=== PATIENT | male | born 1980 | race Two or more races ===

== ENCOUNTER 2022-01-30 13:25 | Inpatient (IN) | payer OTHER ==
[2022-01-30 15:45] VITALS: BMI 21.6
[2022-01-30] MEDS ORDERED: DICYCLOMINE HCL 10 MG CAPSULE PO PRN (16:51)
[2022-01-30] MEDS ORDERED: methaDONE HCL 10 MG TABLET (FOR DETOX USE ONLY) PO ONE (16:51)
[2022-01-30] MEDS ORDERED: ONDANSETRON *ODT* 4 MG TABLET SL PRN (16:51)
[2022-01-30] MEDS ORDERED: MAG HYDROX/AL HYDROX/SIMETH 30 ML UNIT-DOSE CUP PO PRN (16:51)
[2022-01-30] MEDS ORDERED: MAGNESIUM CITRATE 300 ML BOTTLE PO PRN (16:51)
[2022-01-30] MEDS ORDERED: IBUPROFEN 400 MG TABLET (FP) PO PRN (16:51)
[2022-01-30] MEDS ORDERED: NICOTINE 10 MG CARTRIDGE (INHALER) IH PRN (16:51)
[2022-01-30] MEDS ORDERED: IBUPROFEN 600 MG TABLET (FP) PO PRN (16:51)
[2022-01-30] MEDS ORDERED: BISMUTH SUBSALICYLATE 524 MG/30 ML PO PRN (16:51)
[2022-01-30] MEDS ORDERED: LOPERAMIDE HCL 2 MG CAPSULE PO PRN (16:51)
[2022-01-30] MEDS ORDERED: ACETAMINOPHEN 325 MG TABLET (FP) PO PRN ×2 (16:51)
[2022-01-30] MEDS ORDERED: BENZOCAINE/MENTHOL (CHLORASEPTIC ) LOZENGE MM PRN (16:51)
[2022-01-30] MEDS ORDERED: MAGNESIUM HYDROX 2400MG/30ML ORAL SUSPENSION 30 ML CUP PO PRN (16:51)
[2022-01-31] MEDS: MELATONIN 5 MG TABLETS PO SCH ×2 (00:13→21:25)
[2022-01-31] MEDS: PRENATAL VITAMINS W/ FOLIC ACID TABLET (FP) PO SCH ×2 (00:14→09:58)
[2022-01-31] MEDS: THIAMINE HCL 100 MG TABLET (FP) PO SCH ×2 (00:14→21:24)
[2022-01-31] MEDS: hydrOXYzine PAMOATE 25 MG CAPSULE (FP) PO SCH ×6 (00:14→21:23)
[2022-01-31] MEDS: METHOCARBAMOL 500 MG TABLET PO PRN ×2 (09:58→23:14)
[2022-01-31] MEDS: cloNIDine HCL 0.1 MG TABLET PO PRN (11:02)
[2022-01-31] MEDS: diazePAM 5 MG TABLET PO PRN ×2 (12:24→21:24)
[2022-01-31 14:02] LABS: HEMATOCRIT 45.4 % (35.4-49); HEMOGLOBIN 15.4 GM/dL (11.7-16.9); MCH 31.3 pg (25.7-33.7); MEAN PLT VOLUME 8.6 fl (7.5-11.1); PLATELET COUNT 277 10^3/uL (134-434); RBC 4.93 M/mm3 (4.00-5.60); RDW 13.3 % (11.9-15.9); WHITE BLOOD COUNT 5.4 K/mm3 (4.0-10.0)
[2022-01-31 14:11] LABS: ALBUMIN 3.2 g/dl (3.4-5.0); CALCIUM 9.6 mg/dL (8.5-10.1)
[2022-01-31 14:12] LABS: BLOOD UREA NITROGEN 8.1 mg/dL (7-18)
[2022-01-31 14:15] LABS: CREATININE 0.7 mg/dL (0.55-1.3)
[2022-01-31 14:16] LABS: TOT PROT 7.5 g/dl (6.4-8.2)
[2022-01-31 14:17] LABS: BILIRUBIN,TOTAL 0.5 mg/dL (0.2-1)
[2022-02-01] MEDS: cloNIDine HCL 0.1 MG TABLET PO PRN (01:44)
[2022-02-01] MEDS: diazePAM 5 MG TABLET PO PRN ×4 (02:26→22:17)
[2022-02-01] MEDS: hydrOXYzine PAMOATE 25 MG CAPSULE (FP) PO SCH ×5 (06:31→22:17)
[2022-02-01] MEDS ORDERED: methaDONE HCL 10 MG TABLET (FOR DETOX USE ONLY) PO ONE (10:00)
[2022-02-01] MEDS: PRENATAL VITAMINS W/ FOLIC ACID TABLET (FP) PO SCH (10:07)
[2022-02-01 21:30] VITALS: RESP 18
[2022-02-01] MEDS: THIAMINE HCL 100 MG TABLET (FP) PO SCH (22:17)
[2022-02-01] MEDS: MELATONIN 5 MG TABLETS PO SCH (22:17)
[2022-02-02 06:20] VITALS: BP 96/63; PULSE 65; TEMP 97.1
[2022-02-02] MEDS: hydrOXYzine PAMOATE 25 MG CAPSULE (FP) PO SCH (07:05)
[2022-02-03] MEDS ORDERED: methaDONE HCL 10 MG TABLET (FOR DETOX USE ONLY) PO ONE (10:00)
== END 2022-02-02 10:35 | disposition left against medical advice (07) | DRG 770 ==
LOC: YASAS 13:25 → Y6N 20:23
PROVIDERS: ADMIT Allergy & Immunology; ATTEND Surgery
PROC: HZ2ZZZZ Detoxification Services for Substance Abuse Treatment (ICD-10-PCS; principal; 2022-01-30)
DX: F11.23 Opioid dependence with withdrawal (principal); F14.20 Cocaine dependence, uncomplicated; F17.210 Nicotine dependence, cigarettes, uncomplicated; F31.9 Bipolar disorder, unspecified; I10 Essential (primary) hypertension; E78.5 Hyperlipidemia, unspecified; J44.9 Chronic obstructive pulmonary disease, unspecified; Z88.6 Allergy status to analgesic agent; Z86.14 Personal history of Methicillin resistant Staphylococcus aureus infection; Z56.0 Unemployment, unspecified; Z59.00 Homelessness unspecified
CPT/HCPCS: 36415; 80053; 85027; 86780; C9803-CS; J0735; U0003; U0005

== ENCOUNTER 2022-04-21 10:52 | Inpatient (IN) | payer OTHER ==
[2022-04-21 11:19] VITALS: BMI 21.6
[2022-04-21] MEDS ORDERED: MAG HYDROX/AL HYDROX/SIMETH 30 ML UNIT-DOSE CUP PO PRN (13:41)
[2022-04-21] MEDS ORDERED: NALOXONE HCL (KLOXXADO) 8 MG SPRAY NS PRN (13:41)
[2022-04-21] MEDS ORDERED: LOPERAMIDE HCL 2 MG CAPSULE PO PRN (13:41)
[2022-04-21] MEDS ORDERED: NICOTINE 10 MG CARTRIDGE (INHALER) IH PRN (13:41)
[2022-04-21] MEDS ORDERED: methaDONE HCL 10 MG TABLET (FOR DETOX USE ONLY) PO ONE (13:41)
[2022-04-21] MEDS ORDERED: DICYCLOMINE HCL 10 MG CAPSULE PO PRN (13:41)
[2022-04-21] MEDS ORDERED: MAGNESIUM HYDROX 2400MG/30ML ORAL SUSPENSION 30 ML CUP PO PRN (13:41)
[2022-04-21] MEDS ORDERED: BENZOCAINE/MENTHOL (CHLORASEPTIC ) LOZENGE MM PRN (13:41)
[2022-04-21] MEDS ORDERED: MAGNESIUM CITRATE 300 ML BOTTLE PO PRN (13:41)
[2022-04-21] MEDS ORDERED: BISMUTH SUBSALICYLATE 262 MG/15 ML BTL PO PRN (13:41)
[2022-04-21] MEDS ORDERED: IBUPROFEN 400 MG TABLET (FP) PO PRN (13:41)
[2022-04-21] MEDS ORDERED: ACETAMINOPHEN 325 MG TABLET (FP) PO PRN (13:41)
[2022-04-21] MEDS ORDERED: ONDANSETRON *ODT* 4 MG TABLET ONE (15:23)
[2022-04-21] MEDS ORDERED: methaDONE HCL 10 MG TABLET (FOR DETOX USE ONLY) ONE (15:24)
[2022-04-21] MEDS: ONDANSETRON *ODT* 4 MG TABLET SL PRN (15:27)
[2022-04-21] MEDS: ACETAMINOPHEN 325 MG TABLET (FP) PO PRN (15:47)
[2022-04-21] MEDS: PRENATAL VITAMINS W/ FOLIC ACID TABLET (FP) PO SCH (15:47)
[2022-04-21] MEDS: NICOTINE 21 MG/24 HOURS TOPICAL PATCH TD SCH (15:47)
[2022-04-21] MEDS: THIAMINE HCL 100 MG TABLET (FP) PO SCH (22:01)
[2022-04-21] MEDS: METHOCARBAMOL 500 MG TABLET PO PRN (22:02)
[2022-04-21] MEDS: MELATONIN 5 MG TABLETS PO SCH (22:02)
[2022-04-21] MEDS: hydrOXYzine PAMOATE 25 MG CAPSULE (FP) PO PRN (22:02)
[2022-04-22] MEDS: hydrOXYzine PAMOATE 25 MG CAPSULE (FP) PO PRN ×2 (10:32→17:11)
[2022-04-22] MEDS: METHOCARBAMOL 500 MG TABLET PO PRN ×2 (10:32→17:11)
[2022-04-22] MEDS: PRENATAL VITAMINS W/ FOLIC ACID TABLET (FP) PO SCH (10:32)
[2022-04-22] MEDS: ACETAMINOPHEN 325 MG TABLET (FP) PO PRN ×2 (10:32→22:20)
[2022-04-22] MEDS: NICOTINE 21 MG/24 HOURS TOPICAL PATCH TD SCH (10:35)
[2022-04-22 11:06] LABS: HEMATOCRIT 44.5 % (35.4-49); HEMOGLOBIN 14.6 GM/dL (11.7-16.9); MCH 31.4 pg (25.7-33.7); MCHC 32.8 g/dl (32.0-35.9); MEAN CELL VOLUME 95.9 fl (80-96); MEAN PLT VOLUME 7.6 fl (7.5-11.1); PLATELET COUNT 365 10^3/uL (134-434); RBC 4.64 M/mm3 (4.00-5.60); RDW 13.9 % (11.9-15.9); WHITE BLOOD COUNT 4.8 K/mm3 (4.0-10.0)
[2022-04-22 11:10] LABS: CALCIUM 9.5 mg/dL (8.5-10.1)
[2022-04-22 11:11] LABS: ALBUMIN 2.8 g/dl (3.4-5.0)
[2022-04-22 11:14] LABS: CREATININE 0.8 mg/dL (0.55-1.3)
[2022-04-22 11:16] LABS: BILIRUBIN,TOTAL 0.4 mg/dL (0.2-1); TOT PROT 6.5 g/dl (6.4-8.2)
[2022-04-22] MEDS ORDERED: guaiFENesin 200 MG/10 ML 10 ML UNIT-DOSE CUPS PO PRN (12:03)
[2022-04-22] MEDS: DOCUSATE SODIUM 100 MG CAPSULE (FP) PO SCH (12:04)
[2022-04-22] MEDS: THIAMINE HCL 100 MG TABLET (FP) PO SCH (22:19)
[2022-04-22] MEDS: MELATONIN 5 MG TABLETS PO SCH (22:19)
[2022-04-22] MEDS: cloNIDine HCL 0.1 MG TABLET PO PRN (22:19)
[2022-04-23] MEDS: PRENATAL VITAMINS W/ FOLIC ACID TABLET (FP) PO SCH (09:52)
[2022-04-23] MEDS: NICOTINE 21 MG/24 HOURS TOPICAL PATCH TD SCH (09:52)
[2022-04-23] MEDS: DOCUSATE SODIUM 100 MG CAPSULE (FP) PO SCH (09:52)
[2022-04-23] MEDS: cloNIDine HCL 0.1 MG TABLET PO PRN ×2 (09:53→18:33)
[2022-04-23] MEDS: hydrOXYzine PAMOATE 25 MG CAPSULE (FP) PO PRN ×2 (09:53→18:35)
[2022-04-23] MEDS: ONDANSETRON *ODT* 4 MG TABLET SL PRN (09:55)
[2022-04-23] MEDS ORDERED: methaDONE HCL 10 MG TABLET (FOR DETOX USE ONLY) PO ONE (10:00)
[2022-04-23 11:31] LABS: ALBUMIN 2.6 g/dl (3.4-5.0)
[2022-04-23 11:34] LABS: BILIRUBIN,DIRECT 0.1 mg/dL (0.0-0.2)
[2022-04-23 11:36] LABS: BILIRUBIN,TOTAL 0.4 mg/dL (0.2-1)
[2022-04-23] MEDS: METHOCARBAMOL 500 MG TABLET PO PRN (14:13)
[2022-04-23] MEDS: ACETAMINOPHEN 325 MG TABLET (FP) PO PRN (18:36)
[2022-04-23] MEDS: MELATONIN 5 MG TABLETS PO SCH (22:45)
[2022-04-23] MEDS: THIAMINE HCL 100 MG TABLET (FP) PO SCH (22:45)
[2022-04-24] MEDS: METHOCARBAMOL 500 MG TABLET PO PRN ×2 (09:44→16:58)
[2022-04-24] MEDS: DOCUSATE SODIUM 100 MG CAPSULE (FP) PO SCH (09:44)
[2022-04-24] MEDS: hydrOXYzine PAMOATE 25 MG CAPSULE (FP) PO PRN ×2 (09:44→16:58)
[2022-04-24] MEDS: PRENATAL VITAMINS W/ FOLIC ACID TABLET (FP) PO SCH (09:45)
[2022-04-24] MEDS: NICOTINE 21 MG/24 HOURS TOPICAL PATCH TD SCH (09:45)
[2022-04-24] MEDS: ACETAMINOPHEN 325 MG TABLET (FP) PO PRN (16:58)
[2022-04-24 20:59] VITALS: RESP 18
[2022-04-24] MEDS: THIAMINE HCL 100 MG TABLET (FP) PO SCH (22:51)
[2022-04-24] MEDS: MELATONIN 5 MG TABLETS PO SCH (22:51)
[2022-04-25 09:17] VITALS: BP 117/71; PULSE 102; TEMP 98.2
[2022-04-25] MEDS ORDERED: methaDONE HCL 10 MG TABLET (FOR DETOX USE ONLY) PO ONE (10:00)
[2022-04-25] MEDS: NICOTINE 21 MG/24 HOURS TOPICAL PATCH TD SCH (10:05)
[2022-04-25] MEDS: DOCUSATE SODIUM 100 MG CAPSULE (FP) PO SCH (10:05)
[2022-04-25] MEDS: PRENATAL VITAMINS W/ FOLIC ACID TABLET (FP) PO SCH (10:05)
[2022-04-25] MEDS ORDERED: P-EPHED 60MG/TRIPROLIDI 2.5MG TABLET PO PRN (10:07)
== END 2022-04-25 13:10 | disposition home or self-care (01) | DRG 773 ==
LOC: YASAS 10:52 → Y3N 14:39
PROVIDERS: ADMIT Allergy & Immunology; ATTEND Surgery
PROC: HZ2ZZZZ Detoxification Services for Substance Abuse Treatment (ICD-10-PCS; principal; 2022-04-21)
DX: F11.23 Opioid dependence with withdrawal (principal); F14.20 Cocaine dependence, uncomplicated; F17.210 Nicotine dependence, cigarettes, uncomplicated; F41.9 Anxiety disorder, unspecified; F32.A Depression, unspecified; B18.2 Chronic viral hepatitis C; J44.9 Chronic obstructive pulmonary disease, unspecified; K40.90 Unilateral inguinal hernia, without obstruction or gangrene, not specified as recurrent; R74.01 Elevation of levels of liver transaminase levels; Z88.8 Allergy status to other drugs, medicaments and biological substances; Z59.00 Homelessness unspecified
CPT/HCPCS: 36415; 80053; 80076; 85027; 86780; C9803-CS; Q0162; U0003; U0005

== ENCOUNTER 2022-11-03 21:57 | Inpatient (IN) | payer OTHER ==
[2022-11-03 22:27] VITALS: BMI 23.6
[2022-11-03] MEDS ORDERED: BENZONATATE 200 MG CAPSULE PO PRN (23:17)
[2022-11-03] MEDS ORDERED: P-EPHED 60MG/TRIPROLIDI 2.5MG TABLET PO PRN (23:17)
[2022-11-03] MEDS ORDERED: NICOTINE POLACRILEX 2 MG GUM BUC PRN (23:17)
[2022-11-03] MEDS ORDERED: MAG HYDROX/AL HYDROX/SIMETH 30 ML UNIT-DOSE CUP PO PRN (23:17)
[2022-11-03] MEDS ORDERED: ONDANSETRON *ODT* 4 MG TABLET SL PRN (23:17)
[2022-11-03] MEDS ORDERED: BENZOCAINE/MENTHOL (CHLORASEPTIC ) LOZENGE MM PRN (23:17)
[2022-11-03] MEDS ORDERED: MAGNESIUM HYDROX 2400MG/30ML ORAL SUSPENSION 30 ML CUP PO PRN (23:17)
[2022-11-03] MEDS ORDERED: POLYETHYLENE GLYCOL (HEALTHYLAX) 3350 17 GM PACKET PO PRN (23:17)
[2022-11-03] MEDS ORDERED: DICYCLOMINE HCL 10 MG CAPSULE PO PRN (23:17)
[2022-11-03] MEDS ORDERED: NALOXONE HCL 0.4 MG/ML VIAL IM PRN (23:17)
[2022-11-03] MEDS ORDERED: guaiFENesin 600 MG TABLET.ER (FP) PO PRN (23:17)
[2022-11-03] MEDS ORDERED: BISMUTH SUBSALICYLATE 524 MG/30 ML PO PRN (23:17)
[2022-11-03] MEDS ORDERED: NALOXONE HCL (KLOXXADO) 8 MG SPRAY NS PRN (23:17)
[2022-11-03] MEDS ORDERED: methaDONE HCL 10 MG TABLET (FOR DETOX USE ONLY) PO ONE (23:28)
[2022-11-03] MEDS ORDERED: methaDONE HCL 10 MG TABLET (FOR DETOX USE ONLY) ONE (23:39)
[2022-11-04] MEDS: CLINDAMYCIN HCL 150 MG CAPSULE (FP) PO SCH ×5 (00:03→23:34)
[2022-11-04] MEDS: ACETAMINOPHEN 325 MG TABLET (FP) PO PRN ×2 (04:04→13:37)
[2022-11-04] MEDS: METHOCARBAMOL 500 MG TABLET PO PRN ×3 (05:09→17:22)
[2022-11-04] MEDS: PRENATAL VITAMINS W/ FOLIC ACID TABLET (FP) PO SCH (10:13)
[2022-11-04] MEDS: cloNIDine HCL 0.1 MG TABLET PO PRN ×2 (13:37→17:21)
[2022-11-04] MEDS: THIAMINE HCL 100 MG TABLET (FP) PO SCH (22:50)
[2022-11-04] MEDS: MELATONIN 5 MG TABLETS PO PRN (22:50)
[2022-11-05] MEDS: CLINDAMYCIN HCL 150 MG CAPSULE (FP) PO SCH ×4 (05:12→23:30)
[2022-11-05] MEDS: cloNIDine HCL 0.1 MG TABLET PO PRN ×3 (05:12→22:10)
[2022-11-05] MEDS ORDERED: methaDONE HCL 10 MG TABLET (FOR DETOX USE ONLY) PO ONE (10:00)
[2022-11-05] MEDS: LOPERAMIDE HCL 2 MG CAPSULE PO PRN ×2 (10:08→16:55)
[2022-11-05] MEDS: PRENATAL VITAMINS W/ FOLIC ACID TABLET (FP) PO SCH (10:10)
[2022-11-05] MEDS ORDERED: methaDONE HCL 10 MG TABLET (FOR DETOX USE ONLY) ONE (10:50)
[2022-11-05] MEDS: ACETAMINOPHEN 325 MG TABLET (FP) PO PRN ×2 (11:54→19:49)
[2022-11-05] MEDS: METHOCARBAMOL 500 MG TABLET PO PRN ×2 (11:57→22:10)
[2022-11-05] MEDS: MELATONIN 5 MG TABLETS PO PRN (22:11)
[2022-11-05] MEDS: THIAMINE HCL 100 MG TABLET (FP) PO SCH (22:11)
[2022-11-06] MEDS: CLINDAMYCIN HCL 150 MG CAPSULE (FP) PO SCH ×4 (05:10→23:00)
[2022-11-06] MEDS: METHOCARBAMOL 500 MG TABLET PO PRN ×3 (05:11→17:56)
[2022-11-06] MEDS: ACETAMINOPHEN 325 MG TABLET (FP) PO PRN ×3 (05:12→22:16)
[2022-11-06] MEDS: PRENATAL VITAMINS W/ FOLIC ACID TABLET (FP) PO SCH (10:03)
[2022-11-06] MEDS: LOPERAMIDE HCL 2 MG CAPSULE PO PRN (10:07)
[2022-11-06 10:57] LABS: HEMATOCRIT 42.9 % (35.4-49); HEMOGLOBIN 14.6 GM/dL (11.7-16.9); MCH 31.9 pg (25.7-33.7); MEAN CELL VOLUME 93.6 fl (80-96); MEAN PLT VOLUME 8.3 fl (7.5-11.1); PLATELET COUNT 329 10^3/uL (134-434); RBC 4.59 M/mm3 (4.00-5.60); RDW 13.8 % (11.9-15.9); WHITE BLOOD COUNT 5.1 K/mm3 (4.0-10.0)
[2022-11-06 11:15] LABS: POTASSIUM 4.7 mmol/L (3.5-5.1)
[2022-11-06 11:30] LABS: ALBUMIN 2.9 g/dl (3.4-5.0); BLOOD UREA NITROGEN 11.4 mg/dL (7-18); CALCIUM 9.3 mg/dL (8.5-10.1)
[2022-11-06 11:33] LABS: CREATININE 0.7 mg/dL (0.55-1.3)
[2022-11-06 11:35] LABS: BILIRUBIN,TOTAL 0.3 mg/dL (0.2-1); TOT PROT 6.7 g/dl (6.4-8.2)
[2022-11-06] MEDS: MELATONIN 5 MG TABLETS PO PRN (22:14)
[2022-11-06] MEDS: THIAMINE HCL 100 MG TABLET (FP) PO SCH (22:14)
[2022-11-07] MEDS: CLINDAMYCIN HCL 150 MG CAPSULE (FP) PO SCH ×3 (05:11→17:29)
[2022-11-07] MEDS: METHOCARBAMOL 500 MG TABLET PO PRN ×3 (05:11→22:18)
[2022-11-07] MEDS ORDERED: methaDONE HCL 10 MG TABLET (FOR DETOX USE ONLY) PO ONE (10:00)
[2022-11-07] MEDS: LOPERAMIDE HCL 2 MG CAPSULE PO PRN ×2 (10:19→17:31)
[2022-11-07] MEDS: PRENATAL VITAMINS W/ FOLIC ACID TABLET (FP) PO SCH (10:19)
[2022-11-07] MEDS ORDERED: cloNIDine HCL 0.1 MG TABLET PO ONE (11:03)
[2022-11-07] MEDS: ACETAMINOPHEN 325 MG TABLET (FP) PO PRN (17:31)
[2022-11-07] MEDS: MELATONIN 5 MG TABLETS PO PRN (22:16)
[2022-11-07] MEDS: THIAMINE HCL 100 MG TABLET (FP) PO SCH (22:16)
[2022-11-08] MEDS: CLINDAMYCIN HCL 150 MG CAPSULE (FP) PO SCH ×2 (00:22→05:21)
[2022-11-08 06:00] VITALS: BP 123/77; PULSE 70; RESP 17; TEMP 97.7
[2022-11-08] MEDS: LOPERAMIDE HCL 2 MG CAPSULE PO PRN (09:21)
[2022-11-08] MEDS: ACETAMINOPHEN 325 MG TABLET (FP) PO PRN (09:23)
[2022-11-08] MEDS: METHOCARBAMOL 500 MG TABLET PO PRN (09:24)
[2022-11-08] MEDS: PRENATAL VITAMINS W/ FOLIC ACID TABLET (FP) PO SCH (09:26)
== END 2022-11-08 10:39 | disposition home or self-care (01) | DRG 773 ==
LOC: YASAS 21:57 → Y6N 23:22
PROVIDERS: ADMIT Allergy & Immunology; ATTEND Surgery
PROC: HZ2ZZZZ Detoxification Services for Substance Abuse Treatment (ICD-10-PCS; principal; 2022-11-03)
DX: F11.23 Opioid dependence with withdrawal (principal); F14.20 Cocaine dependence, uncomplicated; F16.20 Hallucinogen dependence, uncomplicated; F17.210 Nicotine dependence, cigarettes, uncomplicated; E78.5 Hyperlipidemia, unspecified; I10 Essential (primary) hypertension; I25.2 Old myocardial infarction; J44.9 Chronic obstructive pulmonary disease, unspecified; M17.11 Unilateral primary osteoarthritis, right knee; M54.50 Low back pain, unspecified; G89.29 Other chronic pain; Z86.19 Personal history of other infectious and parasitic diseases; Z59.00 Homelessness unspecified; Z56.0 Unemployment, unspecified; Z88.8 Allergy status to other drugs, medicaments and biological substances
CPT/HCPCS: 36415; 80053; 85027; 86780; 87811; 93005; 93010; C9803-CS; Q0162; U0003; U0005

== ENCOUNTER 2023-02-13 18:26 | Inpatient (IN) | payer OTHER ==
[2023-02-13 21:09] VITALS: BMI 28.4
[2023-02-13] MEDS ORDERED: BENZOCAINE/MENTHOL (CHLORASEPTIC ) LOZENGE MM PRN (22:01)
[2023-02-13] MEDS ORDERED: BENZONATATE 200 MG CAPSULE PO PRN (22:01)
[2023-02-13] MEDS ORDERED: DICYCLOMINE HCL 10 MG CAPSULE PO PRN (22:01)
[2023-02-13] MEDS ORDERED: MAGNESIUM HYDROX 2400MG/30ML ORAL SUSPENSION 30 ML CUP PO PRN (22:01)
[2023-02-13] MEDS ORDERED: NICOTINE POLACRILEX 2 MG GUM BUC PRN (22:01)
[2023-02-13] MEDS ORDERED: NALOXONE HCL (KLOXXADO) 8 MG SPRAY NS PRN (22:01)
[2023-02-13] MEDS ORDERED: NALOXONE HCL 0.4 MG/ML VIAL IM PRN (22:01)
[2023-02-13] MEDS ORDERED: MAG HYDROX/AL HYDROX/SIMETH 30 ML UNIT-DOSE CUP PO PRN (22:01)
[2023-02-13] MEDS ORDERED: P-EPHED 60MG/TRIPROLIDI 2.5MG TABLET PO PRN (22:01)
[2023-02-13] MEDS ORDERED: POLYETHYLENE GLYCOL (HEALTHYLAX) 3350 17 GM PACKET PO PRN (22:01)
[2023-02-13] MEDS ORDERED: PROCHLORPERAZINE MALEATE 5 MG TABLET PO PRN (22:01)
[2023-02-13] MEDS ORDERED: guaiFENesin 600 MG TABLET.ER (FP) PO PRN (22:01)
[2023-02-13] MEDS ORDERED: methaDONE HCL 10 MG TABLET (FOR DETOX USE ONLY) PO ONE (22:06)
[2023-02-13] MEDS ORDERED: methaDONE HCL 10 MG TABLET (FOR DETOX USE ONLY) ONE (23:13)
[2023-02-14] MEDS: METHOCARBAMOL 500 MG TABLET PO PRN ×3 (00:29→20:19)
[2023-02-14] MEDS: cloNIDine HCL 0.1 MG TABLET PO PRN ×2 (00:30→10:26)
[2023-02-14] MEDS ORDERED: methaDONE HCL 10 MG TABLET (FOR DETOX USE ONLY) PO ONE (10:00)
[2023-02-14] MEDS: PRENATAL VITAMINS W/ FOLIC ACID TABLET (FP) PO SCH (10:19)
[2023-02-14] MEDS: LOPERAMIDE HCL 2 MG CAPSULE PO PRN (10:23)
[2023-02-14 11:36] LABS: HEMATOCRIT 36.6 % (35.4-49); HEMOGLOBIN 11.8 GM/dL (11.7-16.9); MCH 29.2 pg (25.7-33.7); MCHC 32.2 g/dl (32.0-35.9); MEAN CELL VOLUME 90.7 fl (80-96); MEAN PLT VOLUME 8.4 fl (7.5-11.1); PLATELET COUNT 288 10^3/uL (134-434); RBC 4.03 M/mm3 (4.00-5.60); RDW 15.5 % (11.9-15.9); WHITE BLOOD COUNT 4.2 K/mm3 (4.0-10.0)
[2023-02-14 12:06] LABS: POTASSIUM 3.8 mmol/L (3.5-5.1)
[2023-02-14 12:13] LABS: CALCIUM 9.1 mg/dL (8.5-10.1)
[2023-02-14 12:14] LABS: ALBUMIN 3.1 g/dl (3.4-5.0); BLOOD UREA NITROGEN 6.4 mg/dL (7-18)
[2023-02-14 12:17] LABS: CREATININE 0.5 mg/dL (0.55-1.3)
[2023-02-14 12:18] LABS: BILIRUBIN,TOTAL 0.6 mg/dL (0.2-1); TOT PROT 6.9 g/dl (6.4-8.2)
[2023-02-14] MEDS ORDERED: METOPROLOL TARTRATE 50 MG TABLET (FP) PO SCH (13:00)
[2023-02-14] MEDS: ASPIRIN COATED 81 MG TABLET.EC PO SCH (13:44)
[2023-02-14] MEDS: THIAMINE HCL 100 MG TABLET (FP) PO SCH (22:24)
[2023-02-14] MEDS: MELATONIN 5 MG TABLETS PO SCH (22:25)
[2023-02-14] MEDS: METOPROLOL TARTRATE 50 MG TABLET (FP) PO SCH (22:25)
[2023-02-14] MEDS: ACETAMINOPHEN 325 MG TABLET (FP) PO PRN (22:26)
[2023-02-15] MEDS: PRENATAL VITAMINS W/ FOLIC ACID TABLET (FP) PO SCH (10:01)
[2023-02-15] MEDS: ASPIRIN COATED 81 MG TABLET.EC PO SCH (10:01)
[2023-02-15] MEDS: METHOCARBAMOL 500 MG TABLET PO PRN ×3 (10:01→22:10)
[2023-02-15] MEDS: METOPROLOL TARTRATE 50 MG TABLET (FP) PO SCH ×2 (10:01→22:10)
[2023-02-15] MEDS: ACETAMINOPHEN 325 MG TABLET (FP) PO PRN (10:04)
[2023-02-15] MEDS: diazePAM 5 MG TABLET PO PRN ×3 (12:22→22:13)
[2023-02-15] MEDS: THIAMINE HCL 100 MG TABLET (FP) PO SCH (22:10)
[2023-02-15] MEDS: MELATONIN 5 MG TABLETS PO SCH (22:10)
[2023-02-16] MEDS ORDERED: methaDONE HCL 10 MG TABLET (FOR DETOX USE ONLY) PO ONE (10:00)
[2023-02-16] MEDS: ASPIRIN COATED 81 MG TABLET.EC PO SCH (10:53)
[2023-02-16] MEDS: PRENATAL VITAMINS W/ FOLIC ACID TABLET (FP) PO SCH (10:53)
[2023-02-16] MEDS: METOPROLOL TARTRATE 50 MG TABLET (FP) PO SCH ×2 (10:54→22:22)
[2023-02-16] MEDS: LOPERAMIDE HCL 2 MG CAPSULE PO PRN (10:56)
[2023-02-16] MEDS: METHOCARBAMOL 500 MG TABLET PO PRN ×2 (10:57→20:12)
[2023-02-16] MEDS: ACETAMINOPHEN 325 MG TABLET (FP) PO PRN ×2 (13:01→20:12)
[2023-02-16] MEDS: diazePAM 5 MG TABLET PO PRN ×2 (13:02→20:12)
[2023-02-16] MEDS: THIAMINE HCL 100 MG TABLET (FP) PO SCH (22:22)
[2023-02-16] MEDS: MELATONIN 5 MG TABLETS PO SCH (22:23)
[2023-02-17] MEDS: METOPROLOL TARTRATE 50 MG TABLET (FP) PO SCH ×2 (10:56→22:25)
[2023-02-17] MEDS: ASPIRIN COATED 81 MG TABLET.EC PO SCH (10:56)
[2023-02-17] MEDS: PRENATAL VITAMINS W/ FOLIC ACID TABLET (FP) PO SCH (10:56)
[2023-02-17] MEDS: METHOCARBAMOL 500 MG TABLET PO PRN ×2 (13:28→22:25)
[2023-02-17] MEDS ORDERED: hydrOXYzine PAMOATE 25 MG CAPSULE (FP) PO PRN (17:58)
[2023-02-17] MEDS: MELATONIN 5 MG TABLETS PO SCH (22:24)
[2023-02-17] MEDS: THIAMINE HCL 100 MG TABLET (FP) PO SCH (22:25)
[2023-02-18 09:35] VITALS: BP 133/80; PULSE 64; RESP 16; TEMP 97.5
[2023-02-18] MEDS: METOPROLOL TARTRATE 50 MG TABLET (FP) PO SCH (09:36)
[2023-02-18] MEDS: ASPIRIN COATED 81 MG TABLET.EC PO SCH (09:36)
[2023-02-18] MEDS: PRENATAL VITAMINS W/ FOLIC ACID TABLET (FP) PO SCH (09:36)
[2023-02-18] MEDS: METHOCARBAMOL 500 MG TABLET PO PRN (09:37)
== END 2023-02-18 11:12 | disposition other institution (70) | DRG 773 ==
LOC: YASAS 18:26 → Y6N 22:41
PROVIDERS: ADMIT Allergy & Immunology; ATTEND Allergy & Immunology
PROC: HZ2ZZZZ Detoxification Services for Substance Abuse Treatment (ICD-10-PCS; principal; 2023-02-13)
DX: F11.23 Opioid dependence with withdrawal (principal); F14.20 Cocaine dependence, uncomplicated; F17.210 Nicotine dependence, cigarettes, uncomplicated; F42.9 Obsessive-compulsive disorder, unspecified; I10 Essential (primary) hypertension; I25.2 Old myocardial infarction; J45.20 Mild intermittent asthma, uncomplicated; B18.2 Chronic viral hepatitis C; Z62.810 Personal history of physical and sexual abuse in childhood; Z86.79 Personal history of other diseases of the circulatory system; Z99.89 Dependence on other enabling machines and devices; Z88.8 Allergy status to other drugs, medicaments and biological substances
CPT/HCPCS: 36415; 80053; 85027; 86780; 87635; 87811

== ENCOUNTER 2023-02-18 11:22 | Inpatient (IN) | payer OTHER ==
[2023-02-18] MEDS ORDERED: POLYETHYLENE GLYCOL (HEALTHYLAX) 3350 17 GM PACKET PO PRN (12:04)
[2023-02-18] MEDS ORDERED: COLLOIDAL OATMEAL 1 BAR EACH TP PRN (12:04)
[2023-02-18] MEDS ORDERED: BENZONATATE 200 MG CAPSULE PO PRN (12:04)
[2023-02-18] MEDS ORDERED: ACETAMINOPHEN 325 MG TABLET (FP) PO PRN (12:04)
[2023-02-18] MEDS ORDERED: BENZOCAINE/MENTHOL (CHLORASEPTIC ) LOZENGE MM PRN (12:04)
[2023-02-18] MEDS ORDERED: MAG HYDROX/AL HYDROX/SIMETH 30 ML UNIT-DOSE CUP PO PRN (12:04)
[2023-02-18] MEDS ORDERED: NALOXONE HCL (KLOXXADO) 8 MG SPRAY NS PRN (12:04)
[2023-02-18] MEDS ORDERED: guaiFENesin 600 MG TABLET.ER (FP) PO PRN (12:04)
[2023-02-18] MEDS ORDERED: NICOTINE 7 MG/24 HOURS TOPICAL PATCH TD PRN (12:04)
[2023-02-18] MEDS ORDERED: NICOTINE POLACRILEX 2 MG GUM BUC PRN (12:04)
[2023-02-18] MEDS ORDERED: MAGNESIUM HYDROX 2400MG/30ML ORAL SUSPENSION 30 ML CUP PO PRN (12:04)
[2023-02-18] MEDS ORDERED: NALOXONE HCL 0.4 MG/ML VIAL IVPUSH PRN (12:04)
[2023-02-18] MEDS ORDERED: AMMONIUM LACTATE 12% LOTION 225 GM BOTTLE TP PRN (12:04)
[2023-02-18] MEDS ORDERED: ALBUTEROL SO4 HFA INHALER IH PRN (12:06)
[2023-02-18] MEDS: hydrOXYzine PAMOATE 25 MG CAPSULE (FP) PO PRN ×2 (15:10→23:58)
[2023-02-18] MEDS: METHOCARBAMOL 500 MG TABLET PO PRN (18:32)
[2023-02-18] MEDS: MELATONIN 5 MG TABLETS PO SCH (21:25)
[2023-02-18] MEDS: THIAMINE HCL 100 MG TABLET (FP) PO SCH (21:25)
[2023-02-18] MEDS: METOPROLOL TARTRATE 50 MG TABLET (FP) PO SCH (21:25)
[2023-02-19] MEDS: PRENATAL VITAMINS W/ FOLIC ACID TABLET (FP) PO SCH (09:23)
[2023-02-19] MEDS: ASPIRIN 81 MG CHEWABLE TABLETS PO SCH (09:23)
[2023-02-19] MEDS: METOPROLOL TARTRATE 50 MG TABLET (FP) PO SCH ×2 (09:23→21:47)
[2023-02-19] MEDS: METHOCARBAMOL 500 MG TABLET PO PRN ×3 (09:24→22:49)
[2023-02-19] MEDS: IBUPROFEN 400 MG TABLET (FP) PO PRN ×2 (11:34→21:47)
[2023-02-19] MEDS: ESCITALOPRAM OXALATE 10 MG TABLET PO SCH (11:49)
[2023-02-19] MEDS: hydrOXYzine PAMOATE 25 MG CAPSULE (FP) PO PRN ×3 (11:50→22:49)
[2023-02-19] MEDS: THIAMINE HCL 100 MG TABLET (FP) PO SCH (21:47)
[2023-02-19] MEDS: MELATONIN 5 MG TABLETS PO SCH (21:47)
[2023-02-19] MEDS ORDERED: traZODone HCL 50 MG TABLET (FP) PO SCH (22:00)
[2023-02-20] MEDS: METHOCARBAMOL 500 MG TABLET PO PRN ×2 (10:12→22:24)
[2023-02-20] MEDS: PRENATAL VITAMINS W/ FOLIC ACID TABLET (FP) PO SCH (10:12)
[2023-02-20] MEDS: ASPIRIN 81 MG CHEWABLE TABLETS PO SCH (10:12)
[2023-02-20] MEDS: ESCITALOPRAM OXALATE 10 MG TABLET PO SCH (10:12)
[2023-02-20] MEDS: hydrOXYzine PAMOATE 25 MG CAPSULE (FP) PO PRN ×2 (10:15→18:35)
[2023-02-20] MEDS: METOPROLOL TARTRATE 50 MG TABLET (FP) PO SCH ×2 (10:16→21:27)
[2023-02-20] MEDS ORDERED: BUPRENORPHINE HCL 150 MCG FILM BC SCH ×2 (11:15→11:30)
[2023-02-20] MEDS ORDERED: BUPRENORPHINE HCL 75 MCG FILM BC ONE ×2 (12:15→14:00)
[2023-02-20] MEDS: BUPRENORPHINE HCL 75 MCG FILM BC ONE (12:18)
[2023-02-20] MEDS: LIDOCAINE 5% TOPICAL PATCH TP SCH (12:22)
[2023-02-20] MEDS: METHYL SALICYLATE/MENTHOL OINT 30 GM TUBE TP SCH (12:30)
[2023-02-20] MEDS: GABAPENTIN 300 MG CAPSULE PO SCH ×2 (13:18→21:27)
[2023-02-20] MEDS: IBUPROFEN 400 MG TABLET (FP) PO PRN (17:15)
[2023-02-20] MEDS: THIAMINE HCL 100 MG TABLET (FP) PO SCH (21:26)
[2023-02-20] MEDS: MELATONIN 5 MG TABLETS PO SCH (21:26)
[2023-02-20] MEDS: LIDOCAINE PATCH REMOVAL MC SCH (21:27)
[2023-02-20] MEDS: traZODone HCL 100 MG TABLET (FP) PO SCH (21:28)
[2023-02-21] MEDS: GABAPENTIN 300 MG CAPSULE PO SCH ×3 (06:54→21:10)
[2023-02-21] MEDS: ASPIRIN 81 MG CHEWABLE TABLETS PO SCH (09:43)
[2023-02-21] MEDS: METOPROLOL TARTRATE 50 MG TABLET (FP) PO SCH ×2 (09:43→21:10)
[2023-02-21] MEDS: LIDOCAINE 5% TOPICAL PATCH TP SCH (09:44)
[2023-02-21] MEDS: PRENATAL VITAMINS W/ FOLIC ACID TABLET (FP) PO SCH (09:44)
[2023-02-21] MEDS: CITALOPRAM HYDROBROMIDE 20 MG TABLET PO SCH (09:44)
[2023-02-21] MEDS: METHYL SALICYLATE/MENTHOL OINT 30 GM TUBE TP SCH (09:44)
[2023-02-21] MEDS: hydrOXYzine PAMOATE 25 MG CAPSULE (FP) PO PRN ×2 (09:46→21:11)
[2023-02-21] MEDS ORDERED: BUPRENORPHINE HCL 150 MCG FILM BC ONE ×2 (10:00)
[2023-02-21] MEDS: METHOCARBAMOL 500 MG TABLET PO PRN ×2 (10:46→18:39)
[2023-02-21] MEDS: IBUPROFEN 400 MG TABLET (FP) PO PRN ×2 (12:37→18:39)
[2023-02-21] MEDS: THIAMINE HCL 100 MG TABLET (FP) PO SCH (21:10)
[2023-02-21] MEDS: traZODone HCL 100 MG TABLET (FP) PO SCH (21:10)
[2023-02-21] MEDS: MELATONIN 5 MG TABLETS PO SCH (21:10)
[2023-02-21] MEDS: LIDOCAINE PATCH REMOVAL MC SCH (21:11)
[2023-02-22] MEDS: GABAPENTIN 300 MG CAPSULE PO SCH ×3 (06:17→21:07)
[2023-02-22] MEDS: METHOCARBAMOL 500 MG TABLET PO PRN ×2 (09:23→21:07)
[2023-02-22] MEDS: METOPROLOL TARTRATE 50 MG TABLET (FP) PO SCH ×2 (09:23→21:07)
[2023-02-22] MEDS: hydrOXYzine PAMOATE 25 MG CAPSULE (FP) PO PRN ×3 (09:23→21:07)
[2023-02-22] MEDS: ASPIRIN 81 MG CHEWABLE TABLETS PO SCH (09:23)
[2023-02-22] MEDS: CITALOPRAM HYDROBROMIDE 20 MG TABLET PO SCH (09:24)
[2023-02-22] MEDS: LIDOCAINE 5% TOPICAL PATCH TP SCH (09:24)
[2023-02-22] MEDS: METHYL SALICYLATE/MENTHOL OINT 30 GM TUBE TP SCH (09:24)
[2023-02-22] MEDS: PRENATAL VITAMINS W/ FOLIC ACID TABLET (FP) PO SCH (09:24)
[2023-02-22] MEDS: BUPRENORPHINE HCL 75 MCG FILM BC SCH ×2 (09:26→21:06)
[2023-02-22] MEDS: IBUPROFEN 400 MG TABLET (FP) PO PRN (15:32)
[2023-02-22] MEDS: MELATONIN 5 MG TABLETS PO SCH (21:06)
[2023-02-22] MEDS: THIAMINE HCL 100 MG TABLET (FP) PO SCH (21:06)
[2023-02-22] MEDS: LIDOCAINE PATCH REMOVAL MC SCH (21:07)
[2023-02-22] MEDS: traZODone HCL 100 MG TABLET (FP) PO SCH (21:07)
[2023-02-23] MEDS: GABAPENTIN 300 MG CAPSULE PO SCH (07:01)
[2023-02-23] MEDS: METOPROLOL TARTRATE 50 MG TABLET (FP) PO SCH ×2 (09:14→21:07)
[2023-02-23] MEDS: PRENATAL VITAMINS W/ FOLIC ACID TABLET (FP) PO SCH (09:15)
[2023-02-23] MEDS: LIDOCAINE 5% TOPICAL PATCH TP SCH (09:15)
[2023-02-23] MEDS: METHYL SALICYLATE/MENTHOL OINT 30 GM TUBE TP SCH (09:15)
[2023-02-23] MEDS: IBUPROFEN 400 MG TABLET (FP) PO PRN ×2 (09:16→21:11)
[2023-02-23] MEDS: ASPIRIN 81 MG CHEWABLE TABLETS PO SCH (09:28)
[2023-02-23] MEDS: CITALOPRAM HYDROBROMIDE 20 MG TABLET PO SCH (09:28)
[2023-02-23] MEDS: BUPRENORPHINE HCL 75 MCG FILM BC ONE (09:31)
[2023-02-23] MEDS ORDERED: ACETAMINOPHEN 325 MG TABLET (FP) PO PRN (12:05)
[2023-02-23] MEDS: BUPRENORPHINE HCL 75 MCG FILM BC SCH (12:31)
[2023-02-23] MEDS: GABAPENTIN 400 MG CAPSULE PO SCH ×2 (14:01→21:07)
[2023-02-23] MEDS: METHOCARBAMOL 500 MG TABLET PO PRN (16:31)
[2023-02-23] MEDS: LIDOCAINE PATCH REMOVAL MC SCH (21:06)
[2023-02-23] MEDS: THIAMINE HCL 100 MG TABLET (FP) PO SCH (21:07)
[2023-02-23] MEDS: SUVOREXANT 10 MG TABLET PO PRN (21:11)
[2023-02-23] MEDS: hydrOXYzine PAMOATE 25 MG CAPSULE (FP) PO PRN (21:11)
[2023-02-24] MEDS: GABAPENTIN 400 MG CAPSULE PO SCH ×3 (06:54→21:21)
[2023-02-24] MEDS: CITALOPRAM HYDROBROMIDE 20 MG TABLET PO SCH (10:01)
[2023-02-24] MEDS: ASPIRIN 81 MG CHEWABLE TABLETS PO SCH (10:01)
[2023-02-24] MEDS: METHYL SALICYLATE/MENTHOL OINT 30 GM TUBE TP SCH (10:02)
[2023-02-24] MEDS: BUPRENORPHINE HCL 75 MCG FILM BC SCH (10:02)
[2023-02-24] MEDS: LIDOCAINE 5% TOPICAL PATCH TP SCH (10:03)
[2023-02-24] MEDS: PRENATAL VITAMINS W/ FOLIC ACID TABLET (FP) PO SCH (10:03)
[2023-02-24] MEDS: METOPROLOL TARTRATE 50 MG TABLET (FP) PO SCH ×2 (10:03→21:20)
[2023-02-24] MEDS: hydrOXYzine PAMOATE 25 MG CAPSULE (FP) PO PRN ×2 (10:05→21:21)
[2023-02-24] MEDS: IBUPROFEN 400 MG TABLET (FP) PO PRN ×2 (10:05→18:38)
[2023-02-24] MEDS: METHOCARBAMOL 500 MG TABLET PO PRN (10:05)
[2023-02-24] MEDS: LIDOCAINE PATCH REMOVAL MC SCH (21:20)
[2023-02-24] MEDS: THIAMINE HCL 100 MG TABLET (FP) PO SCH (21:21)
[2023-02-25] MEDS: GABAPENTIN 400 MG CAPSULE PO SCH ×3 (06:59→21:23)
[2023-02-25] MEDS: LOPERAMIDE HCL 2 MG CAPSULE PO PRN (07:22)
[2023-02-25] MEDS: PRENATAL VITAMINS W/ FOLIC ACID TABLET (FP) PO SCH (09:21)
[2023-02-25] MEDS: METOPROLOL TARTRATE 50 MG TABLET (FP) PO SCH ×2 (09:21→21:23)
[2023-02-25] MEDS: CITALOPRAM HYDROBROMIDE 20 MG TABLET PO SCH (09:21)
[2023-02-25] MEDS: LIDOCAINE 5% TOPICAL PATCH TP SCH (09:22)
[2023-02-25] MEDS: METHYL SALICYLATE/MENTHOL OINT 30 GM TUBE TP SCH (09:22)
[2023-02-25] MEDS: IBUPROFEN 400 MG TABLET (FP) PO PRN ×2 (09:23→17:31)
[2023-02-25] MEDS: hydrOXYzine PAMOATE 25 MG CAPSULE (FP) PO PRN (09:25)
[2023-02-25] MEDS: hydrOXYzine PAMOATE 50 MG CAPSULE (FP) PO PRN (17:31)
[2023-02-25] MEDS: SUVOREXANT 10 MG TABLET PO PRN (21:23)
[2023-02-25] MEDS: THIAMINE HCL 100 MG TABLET (FP) PO SCH (21:57)
[2023-02-25] MEDS: LIDOCAINE PATCH REMOVAL MC SCH (23:08)
[2023-02-26] MEDS: GABAPENTIN 400 MG CAPSULE PO SCH ×3 (07:11→21:33)
[2023-02-26] MEDS: METHYL SALICYLATE/MENTHOL OINT 30 GM TUBE TP SCH (09:24)
[2023-02-26] MEDS: LIDOCAINE 5% TOPICAL PATCH TP SCH (09:25)
[2023-02-26] MEDS: METOPROLOL TARTRATE 50 MG TABLET (FP) PO SCH ×2 (09:25→21:33)
[2023-02-26] MEDS: CITALOPRAM HYDROBROMIDE 20 MG TABLET PO SCH (09:25)
[2023-02-26] MEDS: LOPERAMIDE HCL 2 MG CAPSULE PO PRN (09:26)
[2023-02-26] MEDS: PRENATAL VITAMINS W/ FOLIC ACID TABLET (FP) PO SCH (09:26)
[2023-02-26] MEDS: hydrOXYzine PAMOATE 50 MG CAPSULE (FP) PO PRN ×3 (09:27→21:34)
[2023-02-26] MEDS: IBUPROFEN 400 MG TABLET (FP) PO PRN ×2 (09:27→18:56)
[2023-02-26] MEDS: METHOCARBAMOL 500 MG TABLET PO PRN ×2 (13:51→21:34)
[2023-02-26] MEDS: LIDOCAINE PATCH REMOVAL MC SCH (21:33)
[2023-02-26] MEDS: THIAMINE HCL 100 MG TABLET (FP) PO SCH (21:33)
[2023-02-27] MEDS: GABAPENTIN 400 MG CAPSULE PO SCH ×3 (07:05→21:46)
[2023-02-27] MEDS: METOPROLOL TARTRATE 50 MG TABLET (FP) PO SCH ×2 (09:50→21:47)
[2023-02-27] MEDS: CITALOPRAM HYDROBROMIDE 20 MG TABLET PO SCH (09:50)
[2023-02-27] MEDS: METHYL SALICYLATE/MENTHOL OINT 30 GM TUBE TP SCH (09:51)
[2023-02-27] MEDS: PRENATAL VITAMINS W/ FOLIC ACID TABLET (FP) PO SCH (09:51)
[2023-02-27] MEDS: LIDOCAINE 5% TOPICAL PATCH TP SCH ×2 (09:52→13:33)
[2023-02-27] MEDS: hydrOXYzine PAMOATE 50 MG CAPSULE (FP) PO PRN ×2 (09:55→18:06)
[2023-02-27] MEDS: METHOCARBAMOL 500 MG TABLET PO PRN ×2 (09:55→21:51)
[2023-02-27] MEDS ORDERED: LIDOCAINE 5% TOPICAL PATCH TP SCH (12:00)
[2023-02-27] MEDS: busPIRone HCL 10 MG TABLET (FP) PO SCH ×2 (14:39→21:49)
[2023-02-27] MEDS: BUPRENORPHINE HCL 75 MCG FILM BC SCH ×2 (15:40→21:49)
[2023-02-27] MEDS: IBUPROFEN 400 MG TABLET (FP) PO PRN (18:06)
[2023-02-27] MEDS: THIAMINE HCL 100 MG TABLET (FP) PO SCH (21:47)
[2023-02-27] MEDS: LIDOCAINE PATCH REMOVAL MC SCH ×2 (23:45→23:46)
[2023-02-28] MEDS: GABAPENTIN 400 MG CAPSULE PO SCH ×3 (06:38→21:44)
[2023-02-28] MEDS: busPIRone HCL 10 MG TABLET (FP) PO SCH ×3 (06:38→21:44)
[2023-02-28] MEDS: BUPRENORPHINE HCL 75 MCG FILM BC SCH ×2 (09:16→21:44)
[2023-02-28] MEDS: METHYL SALICYLATE/MENTHOL OINT 30 GM TUBE TP SCH (09:18)
[2023-02-28] MEDS: CITALOPRAM HYDROBROMIDE 20 MG TABLET PO SCH (09:18)
[2023-02-28] MEDS: METOPROLOL TARTRATE 50 MG TABLET (FP) PO SCH ×2 (09:19→21:44)
[2023-02-28] MEDS: PRENATAL VITAMINS W/ FOLIC ACID TABLET (FP) PO SCH (09:19)
[2023-02-28] MEDS: LIDOCAINE 5% TOPICAL PATCH TP SCH ×2 (09:19)
[2023-02-28] MEDS: METHOCARBAMOL 500 MG TABLET PO PRN ×2 (09:20→21:49)
[2023-02-28] MEDS: hydrOXYzine PAMOATE 50 MG CAPSULE (FP) PO PRN ×2 (09:20→16:56)
[2023-02-28] MEDS: IBUPROFEN 400 MG TABLET (FP) PO PRN (16:56)
[2023-02-28] MEDS: THIAMINE HCL 100 MG TABLET (FP) PO SCH (21:44)
[2023-02-28] MEDS: SUVOREXANT 15 MG TABLET PO PRN (21:49)
[2023-02-28] MEDS: LIDOCAINE PATCH REMOVAL MC SCH ×2 (22:06)
[2023-03-01] MEDS: busPIRone HCL 10 MG TABLET (FP) PO SCH ×3 (06:43→21:19)
[2023-03-01] MEDS: GABAPENTIN 400 MG CAPSULE PO SCH ×3 (06:43→21:20)
[2023-03-01] MEDS: BUPRENORPHINE HCL 75 MCG FILM BC SCH ×2 (09:12→21:19)
[2023-03-01] MEDS: CITALOPRAM HYDROBROMIDE 20 MG TABLET PO SCH (09:13)
[2023-03-01] MEDS: LIDOCAINE 5% TOPICAL PATCH TP SCH ×2 (09:13)
[2023-03-01] MEDS: METHYL SALICYLATE/MENTHOL OINT 30 GM TUBE TP SCH (09:13)
[2023-03-01] MEDS: METOPROLOL TARTRATE 50 MG TABLET (FP) PO SCH ×2 (09:14→21:20)
[2023-03-01] MEDS: METHOCARBAMOL 500 MG TABLET PO PRN ×2 (09:14→21:21)
[2023-03-01] MEDS: hydrOXYzine PAMOATE 50 MG CAPSULE (FP) PO PRN ×2 (09:14→21:21)
[2023-03-01] MEDS: PRENATAL VITAMINS W/ FOLIC ACID TABLET (FP) PO SCH (09:14)
[2023-03-01] MEDS: LIDOCAINE PATCH REMOVAL MC SCH ×2 (21:20)
[2023-03-01] MEDS: THIAMINE HCL 100 MG TABLET (FP) PO SCH (21:21)
[2023-03-01] MEDS: SUVOREXANT 15 MG TABLET PO PRN (21:22)
[2023-03-02] MEDS: GABAPENTIN 400 MG CAPSULE PO SCH ×3 (06:38→21:10)
[2023-03-02] MEDS: busPIRone HCL 10 MG TABLET (FP) PO SCH ×3 (06:38→21:10)
[2023-03-02] MEDS: BUPRENORPHINE HCL 75 MCG FILM BC SCH (09:27)
[2023-03-02] MEDS: CITALOPRAM HYDROBROMIDE 20 MG TABLET PO SCH (09:28)
[2023-03-02] MEDS: LIDOCAINE 5% TOPICAL PATCH TP SCH ×2 (09:28)
[2023-03-02] MEDS: METHYL SALICYLATE/MENTHOL OINT 30 GM TUBE TP SCH (09:28)
[2023-03-02] MEDS: METOPROLOL TARTRATE 50 MG TABLET (FP) PO SCH ×2 (09:28→21:10)
[2023-03-02] MEDS: PRENATAL VITAMINS W/ FOLIC ACID TABLET (FP) PO SCH (09:29)
[2023-03-02] MEDS: hydrOXYzine PAMOATE 50 MG CAPSULE (FP) PO PRN ×2 (09:31→21:10)
[2023-03-02] MEDS: METHOCARBAMOL 500 MG TABLET PO PRN ×2 (09:31→21:10)
[2023-03-02] MEDS: IBUPROFEN 400 MG TABLET (FP) PO PRN ×2 (11:28→21:11)
[2023-03-02] MEDS: PANTOPRAZOLE 20 MG TABLET PO SCH (14:35)
[2023-03-02] MEDS: THIAMINE HCL 100 MG TABLET (FP) PO SCH (21:10)
[2023-03-02] MEDS: BUPRENORPHINE/NALOXONE 2 MG/0.5 MG FILM PACKET SL SCH (21:10)
[2023-03-02] MEDS: LIDOCAINE PATCH REMOVAL MC SCH ×2 (21:11)
[2023-03-03] MEDS: busPIRone HCL 10 MG TABLET (FP) PO SCH ×3 (06:10→21:16)
[2023-03-03] MEDS: GABAPENTIN 400 MG CAPSULE PO SCH ×3 (06:10→21:16)
[2023-03-03] MEDS: LIDOCAINE 5% TOPICAL PATCH TP SCH ×2 (09:51→09:54)
[2023-03-03] MEDS: BUPRENORPHINE/NALOXONE 2 MG/0.5 MG FILM PACKET SL SCH ×2 (09:52→21:16)
[2023-03-03] MEDS: METOPROLOL TARTRATE 50 MG TABLET (FP) PO SCH ×2 (09:53→21:16)
[2023-03-03] MEDS: hydrOXYzine PAMOATE 50 MG CAPSULE (FP) PO PRN ×2 (09:53→21:16)
[2023-03-03] MEDS: PANTOPRAZOLE 20 MG TABLET PO SCH (09:53)
[2023-03-03] MEDS: CITALOPRAM HYDROBROMIDE 20 MG TABLET PO SCH (09:53)
[2023-03-03] MEDS: METHYL SALICYLATE/MENTHOL OINT 30 GM TUBE TP SCH (09:54)
[2023-03-03] MEDS: PRENATAL VITAMINS W/ FOLIC ACID TABLET (FP) PO SCH (09:54)
[2023-03-03] MEDS: METHOCARBAMOL 500 MG TABLET PO PRN ×2 (09:54→21:16)
[2023-03-03] MEDS: SIMETHICONE 80 MG TAB.CHEW (FP) PO PRN ×2 (11:10→21:16)
[2023-03-03] MEDS: THIAMINE HCL 100 MG TABLET (FP) PO SCH (21:16)
[2023-03-03] MEDS: LIDOCAINE PATCH REMOVAL MC SCH ×2 (21:17)
[2023-03-03] MEDS: SUVOREXANT 15 MG TABLET PO PRN (21:19)
[2023-03-04] MEDS: busPIRone HCL 10 MG TABLET (FP) PO SCH ×3 (06:02→22:30)
[2023-03-04] MEDS: GABAPENTIN 400 MG CAPSULE PO SCH ×3 (06:02→22:30)
[2023-03-04] MEDS: METHYL SALICYLATE/MENTHOL OINT 30 GM TUBE TP SCH (09:59)
[2023-03-04] MEDS: CITALOPRAM HYDROBROMIDE 20 MG TABLET PO SCH (10:00)
[2023-03-04] MEDS: METOPROLOL TARTRATE 50 MG TABLET (FP) PO SCH ×2 (10:01→22:30)
[2023-03-04] MEDS: LIDOCAINE 5% TOPICAL PATCH TP SCH ×2 (10:01)
[2023-03-04] MEDS: PRENATAL VITAMINS W/ FOLIC ACID TABLET (FP) PO SCH (10:02)
[2023-03-04] MEDS: METHOCARBAMOL 500 MG TABLET PO PRN ×2 (10:02→22:30)
[2023-03-04] MEDS: PANTOPRAZOLE 20 MG TABLET PO SCH (10:02)
[2023-03-04] MEDS: hydrOXYzine PAMOATE 50 MG CAPSULE (FP) PO PRN (10:02)
[2023-03-04] MEDS: BUPRENORPHINE/NALOXONE 2 MG/0.5 MG FILM PACKET SL SCH ×2 (10:03→22:30)
[2023-03-04] MEDS: IBUPROFEN 400 MG TABLET (FP) PO PRN (11:49)
[2023-03-04] MEDS: SUVOREXANT 15 MG TABLET PO PRN (22:30)
[2023-03-04] MEDS: LIDOCAINE PATCH REMOVAL MC SCH ×2 (22:30→22:31)
[2023-03-04] MEDS: THIAMINE HCL 100 MG TABLET (FP) PO SCH (22:30)
[2023-03-05] MEDS: GABAPENTIN 400 MG CAPSULE PO SCH ×3 (06:12→21:25)
[2023-03-05] MEDS: busPIRone HCL 10 MG TABLET (FP) PO SCH ×3 (06:12→21:25)
[2023-03-05] MEDS: CITALOPRAM HYDROBROMIDE 20 MG TABLET PO SCH (09:50)
[2023-03-05] MEDS: LIDOCAINE 5% TOPICAL PATCH TP SCH ×2 (09:51)
[2023-03-05] MEDS: METHYL SALICYLATE/MENTHOL OINT 30 GM TUBE TP SCH (09:51)
[2023-03-05] MEDS: hydrOXYzine PAMOATE 50 MG CAPSULE (FP) PO PRN ×2 (09:52→21:26)
[2023-03-05] MEDS: PRENATAL VITAMINS W/ FOLIC ACID TABLET (FP) PO SCH (09:52)
[2023-03-05] MEDS: METHOCARBAMOL 500 MG TABLET PO PRN ×2 (09:52→21:25)
[2023-03-05] MEDS: METOPROLOL TARTRATE 50 MG TABLET (FP) PO SCH ×2 (09:52→21:25)
[2023-03-05] MEDS: PANTOPRAZOLE 20 MG TABLET PO SCH (09:52)
[2023-03-05] MEDS: BUPRENORPHINE/NALOXONE 2 MG/0.5 MG FILM PACKET SL SCH ×2 (09:52→21:25)
[2023-03-05] MEDS ORDERED: LIDOCAINE 5% TOPICAL PATCH TP PRN ×2 (12:50)
[2023-03-05] MEDS: LIDOCAINE PATCH REMOVAL MC SCH (21:25)
[2023-03-05] MEDS: THIAMINE HCL 100 MG TABLET (FP) PO SCH (21:25)
[2023-03-05] MEDS: SIMETHICONE 80 MG TAB.CHEW (FP) PO PRN (21:27)
[2023-03-06] MEDS: busPIRone HCL 10 MG TABLET (FP) PO SCH ×3 (06:14→21:15)
[2023-03-06] MEDS: GABAPENTIN 400 MG CAPSULE PO SCH ×3 (06:14→21:15)
[2023-03-06] MEDS: CITALOPRAM HYDROBROMIDE 20 MG TABLET PO SCH (09:19)
[2023-03-06] MEDS: METHYL SALICYLATE/MENTHOL OINT 30 GM TUBE TP SCH (09:19)
[2023-03-06] MEDS: PRENATAL VITAMINS W/ FOLIC ACID TABLET (FP) PO SCH (09:20)
[2023-03-06] MEDS: METHOCARBAMOL 500 MG TABLET PO PRN ×2 (09:20→21:15)
[2023-03-06] MEDS: BUPRENORPHINE/NALOXONE 2 MG/0.5 MG FILM PACKET SL SCH ×2 (09:20→21:14)
[2023-03-06] MEDS: hydrOXYzine PAMOATE 50 MG CAPSULE (FP) PO PRN ×2 (09:20→21:15)
[2023-03-06] MEDS: METOPROLOL TARTRATE 50 MG TABLET (FP) PO SCH ×2 (09:20→21:15)
[2023-03-06] MEDS: PANTOPRAZOLE 20 MG TABLET PO SCH (09:20)
[2023-03-06] MEDS: SIMETHICONE 80 MG TAB.CHEW (FP) PO PRN (11:37)
[2023-03-06] MEDS: LIDOCAINE PATCH REMOVAL MC SCH (21:15)
[2023-03-06] MEDS: SUVOREXANT 15 MG TABLET PO PRN (21:15)
[2023-03-06] MEDS: THIAMINE HCL 100 MG TABLET (FP) PO SCH (21:15)
[2023-03-07] MEDS: GABAPENTIN 400 MG CAPSULE PO SCH ×3 (06:20→21:28)
[2023-03-07] MEDS: busPIRone HCL 10 MG TABLET (FP) PO SCH ×3 (06:21→21:28)
[2023-03-07] MEDS: hydrOXYzine PAMOATE 50 MG CAPSULE (FP) PO PRN ×2 (09:47→21:29)
[2023-03-07] MEDS: METHOCARBAMOL 500 MG TABLET PO PRN ×2 (09:47→21:28)
[2023-03-07] MEDS: PANTOPRAZOLE 20 MG TABLET PO SCH (09:47)
[2023-03-07] MEDS: METOPROLOL TARTRATE 50 MG TABLET (FP) PO SCH ×2 (09:48→21:29)
[2023-03-07] MEDS: CITALOPRAM HYDROBROMIDE 20 MG TABLET PO SCH (09:48)
[2023-03-07] MEDS: PRENATAL VITAMINS W/ FOLIC ACID TABLET (FP) PO SCH (09:48)
[2023-03-07] MEDS: METHYL SALICYLATE/MENTHOL OINT 30 GM TUBE TP SCH (09:48)
[2023-03-07] MEDS: BUPRENORPHINE/NALOXONE 2 MG/0.5 MG FILM PACKET SL SCH ×2 (09:49→21:27)
[2023-03-07] MEDS: THIAMINE HCL 100 MG TABLET (FP) PO SCH (21:27)
[2023-03-07] MEDS: SUVOREXANT 15 MG TABLET PO PRN (21:30)
[2023-03-07] MEDS: LIDOCAINE PATCH REMOVAL MC SCH (21:31)
[2023-03-08] MEDS: GABAPENTIN 400 MG CAPSULE PO SCH ×3 (06:44→21:28)
[2023-03-08] MEDS: busPIRone HCL 10 MG TABLET (FP) PO SCH ×3 (06:44→21:28)
[2023-03-08] MEDS: METHYL SALICYLATE/MENTHOL OINT 30 GM TUBE TP SCH (09:55)
[2023-03-08] MEDS: PRENATAL VITAMINS W/ FOLIC ACID TABLET (FP) PO SCH (09:56)
[2023-03-08] MEDS: hydrOXYzine PAMOATE 50 MG CAPSULE (FP) PO PRN (09:56)
[2023-03-08] MEDS: METOPROLOL TARTRATE 50 MG TABLET (FP) PO SCH ×2 (09:56→21:29)
[2023-03-08] MEDS: CITALOPRAM HYDROBROMIDE 20 MG TABLET PO SCH (09:56)
[2023-03-08] MEDS: METHOCARBAMOL 500 MG TABLET PO PRN (09:56)
[2023-03-08] MEDS: PANTOPRAZOLE 20 MG TABLET PO SCH (09:56)
[2023-03-08] MEDS: BUPRENORPHINE/NALOXONE 2 MG/0.5 MG FILM PACKET SL SCH ×2 (09:57→21:28)
[2023-03-08] MEDS: THIAMINE HCL 100 MG TABLET (FP) PO SCH (21:28)
[2023-03-08] MEDS: LIDOCAINE PATCH REMOVAL MC SCH (21:31)
[2023-03-08] MEDS ORDERED: SUVOREXANT 15 MG TABLET PO PRN (22:00)
[2023-03-09] MEDS: GABAPENTIN 400 MG CAPSULE PO SCH (06:19)
[2023-03-09] MEDS: busPIRone HCL 10 MG TABLET (FP) PO SCH (06:19)
[2023-03-09 07:27] VITALS: BP 150/78; PULSE 64; RESP 18; TEMP 96.8
[2023-03-09] MEDS ORDERED: METOPROLOL TARTRATE 50 MG TABLET (FP) PO SCH (10:00)
== END 2023-03-09 06:52 | disposition home or self-care (01) | DRG 773 ==
LOC: YASAS 11:22 → Y3E 11:24
PROVIDERS: ADMIT Allergy & Immunology; ATTEND Psychiatry & Neurology Pain Medicine
PROC: HZ2ZZZZ Detoxification Services for Substance Abuse Treatment (ICD-10-PCS; principal; 2023-02-18)
DX: F11.20 Opioid dependence, uncomplicated (principal); F14.20 Cocaine dependence, uncomplicated; F17.210 Nicotine dependence, cigarettes, uncomplicated; I10 Essential (primary) hypertension; J45.20 Mild intermittent asthma, uncomplicated; K40.90 Unilateral inguinal hernia, without obstruction or gangrene, not specified as recurrent; M54.50 Low back pain, unspecified; Z99.89 Dependence on other enabling machines and devices; Z86.79 Personal history of other diseases of the circulatory system; Z86.19 Personal history of other infectious and parasitic diseases; Z88.8 Allergy status to other drugs, medicaments and biological substances
CPT/HCPCS: 71045-TC-FY; 82962

== ENCOUNTER 2023-12-01 11:22 | Inpatient (IN) | payer OTHER ==
[2023-12-01 12:17] VITALS: BMI 43.2
[2023-12-01] MEDS ORDERED: IBUPROFEN 400 MG TABLET (FP) PO PRN (12:38)
[2023-12-01] MEDS ORDERED: POLYETHYLENE GLYCOL (HEALTHYLAX) 3350 17 GM PACKET PO PRN (12:38)
[2023-12-01] MEDS ORDERED: ONDANSETRON *ODT* 4 MG TABLET SL PRN (12:38)
[2023-12-01] MEDS ORDERED: LOPERAMIDE HCL 2 MG CAPSULE PO PRN (12:38)
[2023-12-01] MEDS ORDERED: DICYCLOMINE HCL 10 MG CAPSULE PO PRN (12:38)
[2023-12-01] MEDS ORDERED: NALOXONE HCL 0.4 MG/ML VIAL IM PRN (12:38)
[2023-12-01] MEDS ORDERED: BENZONATATE 200 MG CAPSULE PO PRN (12:38)
[2023-12-01] MEDS ORDERED: ACETAMINOPHEN 325 MG TABLET (FP) PO PRN (12:38)
[2023-12-01] MEDS ORDERED: MAG HYDROX/AL HYDROX/SIMETH 30 ML UNIT-DOSE CUP PO PRN (12:38)
[2023-12-01] MEDS ORDERED: BENZOCAINE/MENTHOL (CHLORASEPTIC ) LOZENGE MM PRN (12:38)
[2023-12-01] MEDS ORDERED: NALOXONE HCL (KLOXXADO) 8 MG SPRAY NS PRN (12:38)
[2023-12-01] MEDS ORDERED: BISMUTH SUBSALICYLATE 524 MG/30 ML PO PRN (12:38)
[2023-12-01] MEDS ORDERED: MAGNESIUM HYDROX 2400MG/30ML ORAL SUSPENSION 30 ML CUP PO PRN (12:38)
[2023-12-01] MEDS ORDERED: methaDONE HCL 10 MG TABLET (FOR DETOX USE ONLY) ONE (13:24)
[2023-12-01] MEDS ORDERED: BUPRENORPHINE/NALOXONE 0.5 MG/0.125 MG FILM ONE (13:25)
[2023-12-01] MEDS: methaDONE HCL 10 MG TABLET (FOR DETOX USE ONLY) PO ONE (13:31)
[2023-12-01] MEDS: BUPRENORPHINE/NALOXONE 0.5 MG/0.125 MG FILM SL ONE ×2 (13:31→22:51)
[2023-12-01] MEDS ORDERED: PRENATAL VITAMINS W/ FOLIC ACID TABLET (FP) PO ONE (13:32)
[2023-12-01] MEDS: cloNIDine HCL 0.1 MG TABLET PO SCH (13:32)
[2023-12-01] MEDS: PRENATAL VITAMINS W/ FOLIC ACID TABLET (FP) PO SCH (13:33)
[2023-12-01] MEDS: NICOTINE 14 MG/24 HOURS TOPICAL PATCH TD SCH (13:33)
[2023-12-01] MEDS ORDERED: NICOTINE 14 MG/24 HOURS TOPICAL PATCH TD ONE (13:33)
[2023-12-01] MEDS: METOPROLOL TARTRATE 50 MG TABLET (FP) PO SCH (21:29)
[2023-12-01] MEDS: THIAMINE 100 MG TABLET PO SCH (21:29)
[2023-12-01] MEDS: MELATONIN 5 MG TABLETS PO SCH (21:29)
[2023-12-01] MEDS: METHOCARBAMOL 500 MG TABLET PO PRN (22:56)
[2023-12-02] MEDS: ALBUTEROL SO4 HFA INHALER IH PRN (10:48)
[2023-12-02] MEDS: ASPIRIN 81 MG CHEWABLE TABLETS PO SCH (10:49)
[2023-12-02] MEDS: BUPRENORPHINE/NALOXONE 0.5 MG/0.125 MG FILM SL SCH (10:49)
[2023-12-02] MEDS: guaiFENesin 600 MG TABLET.ER (FP) PO PRN (16:50)
[2023-12-02] MEDS: hydrOXYzine PAMOATE 25 MG CAPSULE (FP) PO PRN (22:59)
[2023-12-03] MEDS: methaDONE HCL 10 MG TABLET (FOR DETOX USE ONLY) PO ONE (10:28)
[2023-12-03] MEDS: BUPRENORPHINE/NALOXONE 2 MG/0.5 MG FILM PACKET SL SCH (10:30)
[2023-12-03 10:43] LABS: HEMATOCRIT 40.8 % (35.4-49); MCH 32.1 pg (25.7-33.7); MCHC 34.2 g/dl (32.0-35.9); MEAN CELL VOLUME 93.9 fl (80-96); MEAN PLT VOLUME 8.9 fl (7.5-11.1); PLATELET COUNT 205 10^3/uL (134-434); RBC 4.35 M/mm3 (4.00-5.60); RDW 12.7 % (11.9-15.9); WHITE BLOOD COUNT 10.9 K/mm3 (4.0-10.0)
[2023-12-03 10:54] LABS: POTASSIUM 4.1 mmol/L (3.5-5.1)
[2023-12-03 11:04] LABS: CALCIUM 9.2 mg/dL (8.5-10.1)
[2023-12-03 11:05] LABS: ALBUMIN 3.3 g/dl (3.4-5.0); BLOOD UREA NITROGEN 13.7 mg/dL (7-18)
[2023-12-03 11:09] LABS: BILIRUBIN,TOTAL 1.5 mg/dL (0.2-1); TOT PROT 6.7 g/dl (6.4-8.2)
[2023-12-04] MEDS: BUPRENORPHINE/NALOXONE 4 MG/1 MG FILM PACKET SL SCH (09:54)
[2023-12-05] MEDS: IBUPROFEN 600 MG TABLET (FP) PO PRN (05:42)
[2023-12-05] MEDS: methaDONE HCL 10 MG TABLET (FOR DETOX USE ONLY) PO ONE (09:54)
[2023-12-05] MEDS: BUPRENORPHINE/NALOXONE 8 MG/2 MG FILM PACKET SL SCH (09:55)
[2023-12-06] MEDS: BUPRENORPHINE/NALOXONE 8 MG/2 MG FILM PACKET SL SCH (10:06)
[2023-12-06 12:29] LABS: BASO % 0.9 % (0-2.0); EOS % 6.6 % (0-4.5); HEMATOCRIT 43.6 % (35.4-49); LYMPH % 22.1 % (8-40); MCH 32.6 pg (25.7-33.7); MCHC 34.5 g/dl (32.0-35.9); MEAN CELL VOLUME 94.4 fl (80-96); MEAN PLT VOLUME 8.7 fl (7.5-11.1); MONO % 8.9 % (3.8-10.2); NEUT % 61.5 % (42.8-82.8); PLATELET COUNT 290 10^3/uL (134-434); RBC 4.62 M/mm3 (4.00-5.60); RDW 13.1 % (11.9-15.9); WHITE BLOOD COUNT 10.4 K/mm3 (4.0-10.0)
[2023-12-06 23:09] VITALS: RESP 18
[2023-12-07 09:43] VITALS: BP 122/72; PULSE 80; TEMP 97.3
[2023-12-07 12:05] LABS: POTASSIUM 4.2 mmol/L (3.5-5.1)
[2023-12-07 12:09] LABS: BLOOD UREA NITROGEN 13.9 mg/dL (7-18)
[2023-12-07 12:11] LABS: ALBUMIN 3.2 g/dl (3.4-5.0)
[2023-12-07 12:16] LABS: BILIRUBIN,TOTAL 0.6 mg/dL (0.2-1); TOT PROT 6.5 g/dl (6.4-8.2)
== END 2023-12-07 09:55 | disposition home or self-care (01) | DRG 773 ==
LOC: YASAS 11:22 → Y6N 12:47
PROVIDERS: ADMIT Allergy & Immunology; ATTEND Surgery
PROC: HZ2ZZZZ Detoxification Services for Substance Abuse Treatment (ICD-10-PCS; principal; 2023-12-01)
DX: F11.23 Opioid dependence with withdrawal (principal); F14.20 Cocaine dependence, uncomplicated; F17.210 Nicotine dependence, cigarettes, uncomplicated; F41.9 Anxiety disorder, unspecified; I25.10 Atherosclerotic heart disease of native coronary artery without angina pectoris; I10 Essential (primary) hypertension; I25.2 Old myocardial infarction; Z87.74 Personal history of (corrected) congenital malformations of heart and circulatory system; Z99.89 Dependence on other enabling machines and devices; Z88.8 Allergy status to other drugs, medicaments and biological substances
CPT/HCPCS: 36415; 80048; 80053; 80305; 85025; 85027; 86780; 93005; 93010